=== PATIENT | male | born 1970 | race Caucasian/White ===

== ENCOUNTER → 2024-08-17 | Day surgery (SDC) | payer BC ==
[~2024-08-17] MED LIST: LIDOCAINE HCL 2% LOCAL INJ 5 ML SDV VIAL INJ ONE; MIDAZOLAM HCL 2 MG/2 ML VIAL ONE; PROPOFOL IV EMULSION 10 MG/ML 20 ML VIAL ONE; TESTOSTERONE200 MG IM; ZESTRIL10 MG PO
[2024-08-17] MEDS: LACTATED RINGER'S 1,000 ML ONE (05:53)
[2024-08-17 07:08] VITALS: TEMP 98
[2024-08-17 07:20] VITALS: BP 123/70; PULSE 70; RESP 16; O2SAT 95
== END | disposition home or self-care (01) ==
LOC: OR 05:54
PROVIDERS: ATTEND Internal Medicine Gastroenterology
DX: Z09 Encounter for follow-up examination after completed treatment for conditions other than malignant neoplasm (principal); D12.8 Benign neoplasm of rectum; Z86.010 Personal history of colon polyps; K57.30 Diverticulosis of large intestine without perforation or abscess without bleeding; K64.8 Other hemorrhoids; G47.33 Obstructive sleep apnea (adult) (pediatric); Z78.9 Other specified health status; I10 Essential (primary) hypertension; Z01.810 Encounter for preprocedural cardiovascular examination; Z79.899 Other long term (current) drug therapy; Z68.34 Body mass index [BMI] 34.0-34.9, adult
CPT/HCPCS: 45380; 88305; 93005; J2001; J2250; J2704; J7121